=== PATIENT | female | born 1990 | race Caucasian/White ===

== ENCOUNTER 2022-11-24 12:14 | Outpatient (CLI) | payer OTHER | END 2022-11-24 12:15 | disposition home or self-care (01) | LOC: CSHMRI 12:14 | PROVIDERS: ATTEND Nurse Anesthetist, Certified Registered | DX: M47.816 Spondylosis without myelopathy or radiculopathy, lumbar region (principal); Z98.890 Other specified postprocedural states | CPT/HCPCS: 72148 ==